=== PATIENT | female | born 1970 | race Caucasian/White ===

== ENCOUNTER → 2016-09-20 17:24 | Outpatient (CLI) | payer OTHER | END | disposition home or self-care (01) | LOC: D.MAMMO 11:15 | DX: Z12.31 Encounter for screening mammogram for malignant neoplasm of breast (principal) ==

== ENCOUNTER → 2017-11-20 17:51 | Outpatient (CLI) | payer OTHER | END | disposition home or self-care (01) | LOC: D.MAMMO 16:15 | DX: Z12.31 Encounter for screening mammogram for malignant neoplasm of breast (principal) ==

== ENCOUNTER 2018-05-26 22:40 | Emergency (ER) | payer OTHER ==
[~2018-05-26] VITALS: Ht 149.9 cm; Wt 77.3 kg
[2018-05-26] MEDS ORDERED: NORMODYNE / TR100 MG PO (22:44)
[2018-05-26] MEDS ORDERED: ZESTORETIC 10/11 TAB PO (22:45)
[2018-05-26] MEDS ORDERED: CRESTOR20 MG PO (22:45)
[2018-05-26] MEDS ORDERED: KLOR-CON 1010 MEQ (22:46)
[2018-05-26] MEDS ORDERED: HYDROCODONE-APA1 TAB PO (23:39)
== END 2018-05-27 01:25 | disposition home or self-care (01) ==
LOC: D.ER 22:40
DX: S62.002A Unspecified fracture of navicular [scaphoid] bone of left wrist, initial encounter for closed fracture (principal); X58.XXXA Exposure to other specified factors, initial encounter; Y93.89 Activity, other specified; Y92.019 Unspecified place in single-family (private) house as the place of occurrence of the external cause; I10 Essential (primary) hypertension

== ENCOUNTER → 2019-02-10 16:50 | Outpatient (CLI) | payer OTHER ==
[2018-05-26 22:43] VITALS: BMI 34.4
[~2019-02-10 16:50] MED LIST: CRESTOR20 MG PO; HYDROCODONE-APA1 TAB PO; KLOR-CON 1010 MEQ; NORMODYNE / TR100 MG PO; ZESTORETIC 10/11 TAB PO
== END | disposition home or self-care (01) ==
LOC: D.MAMMO 16:00
PROVIDERS: ATTEND Emergency Medicine
DX: Z12.31 Encounter for screening mammogram for malignant neoplasm of breast (principal)

== ENCOUNTER → 2020-02-15 19:29 | Outpatient (CLI) | payer OTHER ==
[2018-05-26 22:43] VITALS: BMI 34.4
== END | disposition home or self-care (01) ==
LOC: D.MAMMO 01-12 15:15
PROVIDERS: ATTEND Physical Medicine & Rehabilitation
DX: Z12.31 Encounter for screening mammogram for malignant neoplasm of breast (principal)

== ENCOUNTER → 2021-02-16 15:45 | Outpatient (CLI) | payer OTHER ==
[2018-05-26 22:43] VITALS: BMI 34.4
== END | disposition home or self-care (01) ==
LOC: D.MAMMO 02-07 16:00
PROVIDERS: ATTEND Emergency Medicine
DX: Z12.31 Encounter for screening mammogram for malignant neoplasm of breast (principal)